=== PATIENT | male | born 1985 | race American Indian/Alaskan Native ===

== ENCOUNTER 2020-02-22 09:48 | Emergency (ER) | payer SELFPAY ==
[2020-02-22] MEDS ORDERED: ONDANSETRON 4 MG/2 ML INJ IV ONE ×2 (10:19→14:11)
[2020-02-22] MEDS ORDERED: MORPHINE 2 MG/1 ML INJ IV ONE (10:19)
[2020-02-22] MEDS ORDERED: PANTOPRAZOLE 40 MG INJ IV ONE (10:19)
[2020-02-22] MEDS ORDERED: SODIUM CHLORIDE 0.9% 1000 ML 1,000 ML IV ONE (10:19)
[2020-02-22] MEDS ORDERED: PIPERACIL/TAZOBACTA 4.5/NS 100 4.5 GM/100 ML VIAL IV ONE (10:20)
--- NOTE | 2020-02-22 10:24 | Emergency Department Report ---
ED Abdominal Pain HPI - General Chief Complaint: Abdominal Pain Stated Complaint: ABD PAIN Time Seen by Provider: 02/22/20 10:11 Source: patient, EMS Mode of arrival: Stretcher Limitations: No Limitations - History of Present Illness Initial Comments: This is a 34-year-old -[place] male who states that he experienced abdominal pain which began at 630 this morning. The pain is located in the right upper quadrant that is an aching which does not radiate. He states that he has not had fever and chills. However he is diaphoretic on my exam. He has had some nausea but no recent vomiting. He states he has had the pain before and was seen in the "[facility]" emergency department. Although he gives a history of problems with his "gallbladder" he denies being told that he had gallstones. He is a very limited historian. MD Complaint: abdominal pain -: Gradual Location: RUQ Radiation: none Migration to: no migration Quality: aching Consistency: constant Improves With: nothing Worsens With: nothing Associated Symptoms: denies other symptoms, nausea. denies: vomiting, diarrhea, fever, chills - Related Data Home Medications Medication Instructions Recorded Confirmed Last Taken Insulin Aspart (Nf) [Novolog 100 3 units SUBLINGUAL AC 05/24/13 05/24/13 05/24/13 16:40 UNITS/ML] Insulin Glargine,Hum.rec.anlog 10 unit SQ QHS 05/24/13 05/24/13 05/23/13 [Lantus Solostar] Previous Rx's Medication Instructions Recorded Last Taken Type Hydrocodone Bit/Acetaminophen 1 each PO Q4-6H #15 tablet 05/24/13 Unknown Rx [Lortab 5-500 Tablet] Ibuprofen [Motrin] 800 mg PO TID PRN #14 tablet 05/24/13 Unknown Rx Prednisone 20 mg PO BID #8 tablet 05/24/13 Unknown Rx methOCARBAMOL [Robaxin] 500 mg PO BID #14 tab 05/24/13 Unknown Rx Ondansetron [Zofran Odt] 4 mg PO Q8HR #7 tab.rapdis 02/22/20 Unknown Rx lisinopriL [Zestril TAB] 5 mg PO QDAY #30 02/22/20 Unknown Rx metFORMIN [Glucophage] 500 mg PO BID #60 tablet 02/22/20 Unknown Rx traMADoL [Ultram] 50 mg PO Q6HR PRN #7 tablet 02/22/20 Unknown Rx Allergies Allergy/AdvReac Type Severity Reaction Status Date / Time No Known Allergies Allergy Unverified 05/24/13 16:38 ED Review of Systems ROS: Stated complaint: ABD PAIN Other details as noted in HPI Constitutional: denies: chills, fever Eyes: denies: eye pain, eye discharge, vision change ENT: denies: ear pain, throat pain Respiratory: denies: cough, shortness of breath, wheezing Cardiovascular: denies: chest pain, palpitations Endocrine: no symptoms reported Gastrointestinal: as per HPI, abdominal pain, nausea. denies: diarrhea Genitourinary: denies: urgency, dysuria Musculoskeletal: denies: back pain, joint swelling, arthralgia Skin: denies: rash, lesions Neurological: denies: headache, weakness, paresthesias Psychiatric: denies: anxiety, depression Hematological/Lymphatic: denies: easy bleeding, easy bruising ED Past Medical Hx - Past Medical History Hx Diabetes: Yes - Surgical History Past Surgical History?: No - Social History Smoking Status: Current Every Day Smoker Substance Use Type: Alcohol - Medications Home Medications: Home Medications Medication Instructions Recorded Confirmed Last Taken Type Hydrocodone Bit/Acetaminophen 1 each PO Q4-6H #15 tablet 05/24/13 Unknown Rx [Lortab 5-500 Tablet] Ibuprofen [Motrin] 800 mg PO TID PRN #14 tablet 05/24/13 Unknown Rx Insulin Aspart (Nf) [Novolog 100 3 units SUBLINGUAL AC 05/24/13 05/24/13 05/24/13 16:40 History UNITS/ML] Insulin Glargine,Hum.rec.anlog 10 unit SQ QHS 05/24/13 05/24/13 05/23/13 History [Lantus Solostar] Prednisone 20 mg PO BID #8 tablet 05/24/13 Unknown Rx methOCARBAMOL [Robaxin] 500 mg PO BID #14 tab 05/24/13 Unknown Rx Ondansetron [Zofran Odt] 4 mg PO Q8HR #7 tab.rapdis 02/22/20 Unknown Rx lisinopriL [Zestril TAB] 5 mg PO QDAY #30 02/22/20 Unknown Rx metFORMIN [Glucophage] 500 mg PO BID #60 tablet 02/22/20 Unknown Rx traMADoL [Ultram] 50 mg PO Q6HR PRN #7 tablet 02/22/20 Unknown Rx ED Physical Exam - General Limitations: No Limitations ED Course Vital Signs 02/22/20 02/22/20 02/22/20 10:01 10:02 10:15 Temperature 97.6 F Pulse Rate 48 L 53 L 47 L Respiratory 13 12 Rate Blood Pressure 163/77 163/77 O2 Sat by Pulse 100 100 100 Oximetry 02/22/20 02/22/20 02/22/20 10:45 11:01 11:31 Temperature Pulse Rate 54 L 52 L 45 L Respiratory 19 23 26 H Rate Blood Pressure 165/88 141/67 168/96 O2 Sat by Pulse 100 98 99 Oximetry 02/22/20 02/22/20 02/22/20 12:01 14:07 14:15 Temperature Pulse Rate 43 L 62 Respiratory 20 19 Rate Blood Pressure 160/85 148/72 146/87 O2 Sat by Pulse 81 L 100 100 Oximetry 02/22/20 14:30 Temperature Pulse Rate 45 L Respiratory 25 H Rate Blood Pressure 153/85 O2 Sat by Pulse 100 Oximetry - Reevaluation(s) Reevaluation #1: I did receive the patient's medical records from [facility]. Apparently on 10/06/2019 he was seen in the emergency department. He had an ultrasound of his gallbladder done at that time which showed slight echogenic material within the gallbladder consistent with polyp or sludge. There was no gallstone. Patient was treated as an outpatient. He was not found to have pancreatitis at that time. 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 02/22/20 11:50 Reevaluation #2: Patient states he has had a pattern to have recurrent right upper quadrant pain for at least 6 months. He states that the only thing he takes for his diabetes is "diet and exercise". He states his bowels are moving normally. He does have some recurrent nausea. He denies chest pain pressure or tightness. He does have some discomfort to palpation of the right upper quadrant on reassessment. He will be given additional Zofran. His EKG showed sinus bradycardia. He tells me that he knows that his heart rate runs slow and this is not anything new for him. There is no ischemic change. I think it is likely he will be referred for outpatient evaluation. He states he is never seen a GI doctor nor had a colonoscopy. Further evaluation is recommended. However at this juncture I am not seeing any definite indication for hospitalization. 02/22/20 14:17 Reevaluation #3: Patient states "I just need something to put on my stomach". He is appropriate for outpatient disposition. 02/22/20 15:12 ED Medical Decision Making - Lab Data Result diagrams: 02/22/20 10:39 02/22/20 10:39 Laboratory Results - last 24 hr 02/22/20 02/22/20 10:39 10:46 WBC 9.2 RBC 4.95 Hgb 16.0 H Hct 47.6 H MCV 96 H MCH 32 MCHC 34 RDW 13.9 Plt Count 170 Lymph % (Auto) 25.0 [place] % (Auto) 6.5 Eos % (Auto) 2.7 Baso % (Auto) 0.3 Lymph # (Auto) 2.3 [place] # (Auto) 0.6 Eos # (Auto) 0.2 Baso # (Auto) 0.0 Seg Neutrophils % 65.5 Seg Neutrophils # 6.0 POC Glucose 155 H Laboratory Results - last 24 hr 02/22/20 02/22/20 02/22/20 10:39 10:39 10:39 WBC 9.2 RBC 4.95 Hgb 16.0 H Hct 47.6 H MCV 96 H MCH 32 MCHC 34 RDW 13.9 Plt Count 170 Lymph % (Auto) 25.0 [place] % (Auto) 6.5 Eos % (Auto) 2.7 Baso % (Auto) 0.3 Lymph # (Auto) 2.3 [place] # (Auto) 0.6 Eos # (Auto) 0.2 Baso # (Auto) 0.0 Seg Neutrophils % 65.5 Seg Neutrophils # 6.0 PT 12.9 INR 0.96 APTT 27.3 VBG pH Sodium 138 Potassium 3.9 Chloride 97.5 L Carbon Dioxide 27 Anion Gap 17 BUN 5 L Creatinine 0.9 Estimated GFR > 60 BUN/Creatinine Ratio 6 Glucose 173 H POC Glucose Ketones Quantitative Lactic Acid Calcium 10.3 H Magnesium 1.80 Total Bilirubin 0.40 Direct Bilirubin < 0.2 Indirect Bilirubin 0.2 AST 24 ALT 20 Alkaline Phosphatase 70 Total Creatine Kinase CK-MB (CK-2) CK-MB (CK-2) Rel Index Troponin T Total Protein 8.0 Albumin 5.0 Albumin/Globulin Ratio 1.7 Lipase Hepatitis A IgM Ab Hep Bs Antigen Hep B Core IgM Ab Hepatitis C Antibody 02/22/20 02/22/20 02/22/20 10:39 10:39 10:39 WBC RBC Hgb Hct MCV MCH MCHC RDW Plt Count Lymph % (Auto) [place] % (Auto) Eos % (Auto) Baso % (Auto) Lymph # (Auto) [place] # (Auto) Eos # (Auto) Baso # (Auto) Seg Neutrophils % Seg Neutrophils # PT INR APTT VBG pH 7.323 Sodium Potassium Chloride Carbon Dioxide Anion Gap BUN Creatinine Estimated GFR BUN/Creatinine Ratio Glucose POC Glucose Ketones Quantitative Lactic Acid 1.80 Calcium Magnesium Total Bilirubin Direct Bilirubin Indirect Bilirubin AST ALT Alkaline Phosphatase Total Creatine Kinase 384 H CK-MB (CK-2) 3.4 CK-MB (CK-2) Rel Index 0.8 Troponin T < 0.010 Total Protein Albumin Albumin/Globulin Ratio Lipase 13 Hepatitis A IgM Ab Hep Bs Antigen Hep B Core IgM Ab Hepatitis C Antibody 02/22/20 02/22/20 02/22/20 10:39 10:39 10:46 WBC RBC Hgb Hct MCV MCH MCHC RDW Plt Count Lymph % (Auto) [place] % (Auto) Eos % (Auto) Baso % (Auto) Lymph # (Auto) [place] # (Auto) Eos # (Auto) Baso # (Auto) Seg Neutrophils % Seg Neutrophils # PT INR APTT VBG pH Sodium Potassium Chloride Carbon Dioxide Anion Gap BUN Creatinine Estimated GFR BUN/Creatinine Ratio Glucose POC Glucose 155 H Ketones Quantitative Negative Lactic Acid Calcium Magnesium Total Bilirubin Direct Bilirubin Indirect Bilirubin AST ALT Alkaline Phosphatase Total Creatine Kinase CK-MB (CK-2) CK-MB (CK-2) Rel Index Troponin T Total Protein Albumin Albumin/Globulin Ratio Lipase Hepatitis A IgM Ab Non-reactive Hep Bs Antigen Non-reactive Hep B Core IgM Ab Non-reactive Hepatitis C Antibody Non-reactive - EKG Data -: EKG Interpreted by [place] EKG shows normal: sinus rhythm Rate: tachycardia - EKG Data Interpretation: nonspecific ST-T wave omer - Radiology Data Radiology results: report reviewed, image reviewed (Chest x-ray no acute process) IMPRESSION: 1. Abundant fecal material noted throughout the colon. Clinical correlation for constipation is recommended. 2. No other acute abdominopelvic findings. Specifically, the appendix and gallbladder are unremarkable. Critical care attestation.: If time is entered above; I have spent that time in minutes in the direct care of this critically ill patient, excluding procedure time. ED Disposition Clinical Impression: Right upper quadrant pain Hyperglycemia due to type 2 diabetes mellitus Qualifiers: Diabetes mellitus parts counterman insulin use: without fdc use Qualified Code(s): E11.65 - Type 2 diabetes mellitus with hyperglycemia Disposition: TO HOME OR SELFCARE Is pt being admited?: No Does the pt Need Aspirin: No Condition: Stable Instructions: Diabetes Mellitus Type 2 in Adults (ED), Acute Abdominal Pain (ED) Additional Instructions: I would recommend medication for your diabetes. I prescribed add something for nausea as well as something to calm down your stomach acid. Further evaluation by a GI specialist/medical clinic is recommended. Return to the emergency department any acute change or problem. Prescriptions: metFORMIN [Glucophage] 500 mg PO BID #60 tablet traMADoL [Ultram] 50 mg PO Q6HR PRN #7 tablet PRN Reason: Pain lisinopriL [Zestril TAB] 5 mg PO QDAY #30 Ondansetron [Zofran Odt] 4 mg PO Q8HR #7 tab.rapdis Referrals: PRIMARY CARE, [Primary Care Provider] - 3-5 Days [facility] [Provider Group] - 3-5 Days [facility] [Provider Group] - 2-3 Days Time of Disposition: 15:17
--- NOTE | 2020-02-22 10:43 | XRay Report ---
CHEST 1 VIEW INDICATION / CLINICAL INFORMATION: possible Sepsis. COMPARISON: None available. FINDINGS: SUPPORT DEVICES: None. HEART / MEDIASTINUM: No significant abnormality. LUNGS / PLEURA: No significant pulmonary or pleural abnormality. No pneumothorax. ADDITIONAL FINDINGS: No significant additional findings. IMPRESSION: 1. No acute findings. Signer Name: Ryan Ohara MD Signed: 02/22/2020 10:39 AM Workstation Name: [id number]
[2020-02-22 11:13] LABS: Basophils % (Auto) 0.3 % (0.0-1.8); Eosinophils # (Auto) 0.2 K/mm3 (0.0-0.4); Eosinophils % (Auto) 2.7 % (0.0-4.3); Hematocrit 47.6 % (35.5-45.6); Lymphocytes # (Auto) 2.3 K/mm3 (1.2-5.4); Mean Corpuscular HGB Conc 34 % (32-34); Mean Corpuscular Volume 96 fl (84-94); Monocytes # (Auto) 0.6 K/mm3 (0.0-0.8); Monocytes % (Auto) 6.5 % (0.0-7.3); Platelet Count 170 K/mm3 (140-440); Red Blood Count 4.95 M/mm3 (3.65-5.03); Red Cell Distribution Width 13.9 % (13.2-15.2)
[2020-02-22 11:23] LABS: INR 0.96 (0.87-1.13)
[2020-02-22 11:24] LABS: Partial Thromboplastin Time 27.3 Sec. (24.2-36.6)
[2020-02-22 11:28] LABS: Hepatitis B Surface Antigen Non-Reactive (Negative); Hepatitis C Virus Antibody Non-Reactive (NonReactive)
[2020-02-22 11:30] LABS: Alanine Aminotransferase 20 units/L (7-56); BUN/Creatinine Ratio 6; Blood Urea Nitrogen 5 mg/dL (9-20); Calcium 10.3 mg/dL (8.4-10.2); Hemolysis Index 9
[2020-02-22 11:32] LABS: Bilirubin,Direct < 0.2 mg/dL (0-0.2)
[2020-02-22 11:35] LABS: Creatine Kinase MB 3.4 ng/mL (0.0-4.0)
--- NOTE | 2020-02-22 13:19 | Cat Scan Report ---
CT ABDOMEN AND PELVIS WITH CONTRAST INDICATION / CLINICAL INFORMATION: MAIN. Right upper quadrant abdominal pain. TECHNIQUE: Axial CT images were obtained through the abdomen and pelvis after IV contrast. All CT scans at this location are performed using CT dose reduction for ALARA by means of automated exposure control. COMPARISON: None available. FINDINGS: LOWER CHEST: No significant abnormality. LIVER: No significant abnormality. GALLBLADDER: No significant abnormality. BILE DUCTS: No significant abnormality. PANCREAS: No significant abnormality. SPLEEN: Splenule is noted. ADRENALS: No significant abnormality. RIGHT KIDNEY / URETER: No significant abnormality. LEFT KIDNEY / URETER: No significant abnormality. STOMACH / SMALL BOWEL: No significant abnormality. COLON: Abundant fecal material is noted throughout the colon. APPENDIX: No significant abnormality. PERITONEUM: No free fluid. No free air. No fluid collection. LYMPH NODES: No significant adenopathy. AORTA / ARTERIES: No significant abnormality. IVC / VEINS: No significant abnormality. URINARY BLADDER: No significant abnormality. REPRODUCTIVE ORGANS: No significant abnormality. ADDITIONAL FINDINGS: None. SKELETAL SYSTEM: No significant abnormality. IMPRESSION: 1. Abundant fecal material noted throughout the colon. Clinical correlation for constipation is recom mended. 2. No other acute abdominopelvic findings. Specifically, the appendix and gallbladder are unremarkabl e. Signer Name: Ryan Ohara MD Signed: 02/22/2020 1:14 PM Workstation Name: [email or web address]
[2020-02-22 13:47] LABS: Bilirubin,Urine NEG (Negative); Blood,Urine NEG (Negative); Color,Urine Yellow (Yellow); Mucus,Urine FEW /HPF; Protein,Urine <15 mg/dL mg/dL (Negative); Urobilinogen,Urine < 2.0 mg/dL (<2.0)
[2020-02-22 14:10] LABS: Amphetamine Screen,Urine Negative; Benzodiazepines Screen,Urine Negative; Cocaine Screen,Urine Negative; Methadone Screen,Urine Negative; Opiate Screen,Urine Negative
[2020-02-22 14:34] LABS: Cannabinoid Screen,Urine Positive
[2020-02-22 15:26] VITALS: BP 155/101
== END 2020-02-22 15:27 | disposition home or self-care (01) ==
LOC: ED 09:48
DX: E11.65 Type 2 diabetes mellitus with hyperglycemia (principal); R10.11 Right upper quadrant pain; F17.200 Nicotine dependence, unspecified, uncomplicated; Z79.899 Other long term (current) drug therapy
CPT/HCPCS: 36415; 71045; 74177; 80048; 80074; 80076; 80307; 81001; 82010; 82140; 82550; 82553; 82805; 82962; 83690; 83735; 84484; 85025; 85610; 85730; 87040; 87086; 93005; 96365; 96366; 96375; 96376; 99285; C9113; J2270; J2405; J2543; J7030; Q9967

== ENCOUNTER 2020-05-18 11:58 | Emergency (ER) | payer SELFPAY ==
[2020-05-18 13:57] LABS: Basophils % (Auto) 0.3 % (0.0-1.8); Eosinophils # (Auto) 0.1 K/mm3 (0.0-0.4); Eosinophils % (Auto) 1.2 % (0.0-4.3); Hematocrit 45.5 % (35.5-45.6); Hemoglobin 15.8 gm/dl (11.8-15.2); Lymphocytes # (Auto) 3.1 K/mm3 (1.2-5.4); Lymphocytes % (Auto) 41.8 % (13.4-35.0); Mean Corpuscular HGB Conc 35 % (32-34); Mean Corpuscular Volume 94 fl (84-94); Monocytes # (Auto) 0.5 K/mm3 (0.0-0.8); Monocytes % (Auto) 7.3 % (0.0-7.3); Platelet Count 184 K/mm3 (140-440); Red Blood Count 4.86 M/mm3 (3.65-5.03)
[2020-05-18 14:21] LABS: Alanine Aminotransferase 15 units/L (7-56); Albumin 4.6 g/dL (3.9-5); BUN/Creatinine Ratio 13; Blood Urea Nitrogen 10 mg/dL (9-20); Calcium 9.8 mg/dL (8.4-10.2); Hemolysis Index 4
--- NOTE | 2020-05-18 17:44 | Emergency Department Report ---
Chief Complaint: Abdominal Pain Stated Complaint: ABDOMINAL PAIN Time Seen by Provider: 05/18/20 17:44 - HPI History of Present Illness: This is a 34-year-old male who presents to the ED complaining of right upper abdominal cramping. Some nausea for the past 2 days. Patient states that he has had chronic abdominal pain the past year and sometimes gets flareup. Patie nt states he has had multiple scans with normal results. Patient states that his abdominal pain started 2 days ago while he was at work which she has not worked. He states that he was told to be evaluated before returning to work. Patient states that pain is resolved this time. Patient denies nausea vomiting at this time. He also denies fever/chills/chest pain or shortness of breath - ROS Review of Systems: As noted in HPI - Exam Physical Exam: GENERAL: Alert and oriented x3, no apparent distress, Normal Gait, atraumatic. MOUTH:Mouth is well hydrated and without lesions. NECK: Supple. Non edematous, No carotid bruits. No lymphadenopathy or thyromegaly. No C-spine tenderness LUNGS: Symetrical with respiration, No wheezing, no rales or crackles, CTAB. HEART: S1, S2 present, regular rate and rhythm without murmur, ABDOMEN: No organomegaly was noted,Positive bowel sounds, soft, and non- distended. . Nontender to palpation on all Quadrants, NO CVA tenderness. BACK: Full range of motion, no spinal tenderness, nontender to palpation. SKIN: Warm and dry, No lesions, No ulceration or induration present. MSE screening note: Focused history and physical exam performed. Due to findings the following was ordered: ED Medical Decision Making - Lab Data Result diagrams: 05/18/20 13:26 05/18/20 13:26 ED Disposition for MSE Clinical Impression: Gastritis Disposition: DC-01 TO HOME OR SELFCARE Is pt being admited?: No Does the pt Need Aspirin: No Condition: Stable Instructions: Gastritis, Adult, [id number] Additional Instructions: Make sure to follow up with the primary care physician as discussed. Take all your medications as you've been prescribed. If you have any worsening symptoms or develop new symptoms please return to ED immediately. Prescriptions: Ondansetron [Zofran ODT TAB] 4 mg PO Q8HR #20 tab.rapdis Referrals: PRIMARY CARE, [Primary Care Provider] - 3-5 Days [facility] [Provider Group] - 3-5 Days Forms: Work/School Release Form(ED) Time of Disposition: 17:49
[2020-05-18 17:49] VITALS: BP 129/86
[2020-05-18 17:50] LABS: Bilirubin,Urine NEG (Negative); Blood,Urine NEG (Negative); Color,Urine Yellow (Yellow); Mucus,Urine FEW /HPF
== END 2020-05-18 17:49 | disposition home or self-care (01) ==
LOC: ED 11:58
DX: K29.70 Gastritis, unspecified, without bleeding (principal)
CPT/HCPCS: 36415; 80053; 81001; 85025

== ENCOUNTER 2020-08-23 09:40 | Emergency (ER) | payer SELFPAY ==
[2020-08-23] MEDS ORDERED: METOCLOPRAMIDE 10 MG TAB PO ONE (10:45)
[2020-08-23] MEDS ORDERED: BUTALB/ACETAMINOPHEN/CAFFEINE TAB PO ONE (10:45)
[2020-08-23] MEDS ORDERED: diphenhydrAMINE 25 MG CAP PO ONE (10:45)
--- NOTE | 2020-08-23 10:53 | Emergency Department Report ---
ED General Adult HPI - General Chief complaint: Headache Stated complaint: HEADACHE X 3 Time Seen by Provider: 08/23/20 10:43 Source: patient Mode of arrival: Ambulatory Limitations: No Limitations - History of Present Illness Initial comments: Patient is a 34-year-old male presents emergency room with complaints of a right temporal headache that began 3 days ago. He has associated chills, rhinorrhea, sore throat, nausea, couple episodes of vomiting. He states he is able to tolerate p.o. intake. He denies any neck stiffness, fever, cough, shortness of breath, chest pain, abdominal pain, diarrhea, vision changes, numbness, weakness, speech disturbance, gait disturbance. He states that several people at his work are out sick. He denies any recent travel. No past medical history. No allergies medications. He states he has been taking Tylenol for his symptoms with some relief. - Related Data Home Medications Medication Instructions Recorded Confirmed Last Taken Insulin Aspart (Nf) [Novolog 100 3 units SUBLINGUAL AC 05/24/13 05/24/13 05/24/13 16:40 UNITS/ML] Insulin Glargine,Hum.rec.anlog 10 unit SQ QHS 05/24/13 05/24/13 05/23/13 [Lantus Solostar] Previous Rx's Medication Instructions Recorded Last Taken Type Hydrocodone Bit/Acetaminophen 1 each PO Q4-6H #15 tablet 05/24/13 Unknown Rx [Lortab 5-500 Tablet] Ibuprofen [Motrin] 800 mg PO TID PRN #14 tablet 05/24/13 Unknown Rx Prednisone 20 mg PO BID #8 tablet 05/24/13 Unknown Rx methOCARBAMOL [Robaxin] 500 mg PO BID #14 tab 05/24/13 Unknown Rx lisinopriL [Zestril TAB] 5 mg PO QDAY #30 02/22/20 Unknown Rx metFORMIN [Glucophage] 500 mg PO BID #60 tablet 02/22/20 Unknown Rx traMADoL [Ultram] 50 mg PO Q6HR PRN #7 tablet 02/22/20 Unknown Rx Ondansetron [Zofran ODT TAB] 4 mg PO Q8HR #20 tab.rapdis 05/18/20 Unknown Rx Butalb/Acetaminophen/Caffeine 1 cap PO Q8HR PRN #10 cap 08/23/20 Unknown Rx [Fioricet 50-300-40 mg CAP] Ondansetron [Zofran Odt] 4 mg PO Q8HR PRN #10 tab.rapdis 08/23/20 Unknown Rx Allergies Allergy/AdvReac Type Severity Reaction Status Date / Time No Known Allergies Allergy Verified 08/23/20 09:59 ED Review of Systems ROS: Stated complaint: HEADACHE X 3 Other details as noted in HPI Comment: All other systems reviewed and negative ED Past Medical Hx - Past Medical History Previous Medical History?: No Hx Diabetes: Yes - Surgical History Past Surgical History?: No - Social History Smoking Status: Never Smoker Substance Use Type: Marijuana - Medications Home Medications: Home Medications Medication Instructions Recorded Confirmed Last Taken Type Hydrocodone Bit/Acetaminophen 1 each PO Q4-6H #15 tablet 05/24/13 Unknown Rx [Lortab 5-500 Tablet] Ibuprofen [Motrin] 800 mg PO TID PRN #14 tablet 05/24/13 Unknown Rx Insulin Aspart (Nf) [Novolog 100 3 units SUBLINGUAL AC 05/24/13 05/24/13 05/24/13 16:40 History UNITS/ML] Insulin Glargine,Hum.rec.anlog 10 unit SQ QHS 05/24/13 05/24/13 05/23/13 History [Lantus Solostar] Prednisone 20 mg PO BID #8 tablet 05/24/13 Unknown Rx methOCARBAMOL [Robaxin] 500 mg PO BID #14 tab 05/24/13 Unknown Rx lisinopriL [Zestril TAB] 5 mg PO QDAY #30 02/22/20 Unknown Rx metFORMIN [Glucophage] 500 mg PO BID #60 tablet 02/22/20 Unknown Rx traMADoL [Ultram] 50 mg PO Q6HR PRN #7 tablet 02/22/20 Unknown Rx Ondansetron [Zofran ODT TAB] 4 mg PO Q8HR #20 tab.rapdis 05/18/20 Unknown Rx Butalb/Acetaminophen/Caffeine 1 cap PO Q8HR PRN #10 cap 08/23/20 Unknown Rx [Fioricet 50-300-40 mg CAP] Ondansetron [Zofran Odt] 4 mg PO Q8HR PRN #10 tab.rapdis 08/23/20 Unknown Rx ED Physical Exam - General Limitations: No Limitations General appearance: alert, in no apparent distress - Head Head exam: Present: atraumatic, normocephalic - Eye Eye exam: Present: normal appearance, PERRL, EOMI. Absent: conjunctival injection, periorbital swelling, periorbital tenderness - ENT ENT exam: Present: normal orophraynx, mucous membranes moist, TM's normal bilaterally, normal external ear exam - Neck Neck exam: Present: full ROM. Absent: meningismus - Respiratory Respiratory exam: Present: normal lung sounds bilaterally. Absent: respiratory distress, wheezes, rales, rhonchi, stridor, chest wall tenderness, accessory muscle use, decreased breath sounds, prolonged expiratory - Cardiovascular Cardiovascular Exam: Present: regular rate, normal rhythm, normal heart sounds. Absent: systolic murmur, diastolic murmur, rubs, gallop - Neurological Exam Neurological exam: Present: alert, oriented X3, CN II-XII intact, normal gait. Absent: motor sensory deficit - Psychiatric Psychiatric exam: Present: normal affect, normal mood - Skin Skin exam: Present: warm, dry, intact ED Course Vital Signs 08/23/20 08/23/20 10:03 12:02 Temperature 98.7 F Pulse Rate 90 76 Respiratory 20 Rate Blood Pressure 124/90 Blood Pressure 129/90 [Right] O2 Sat by Pulse 99 Oximetry ED Medical Decision Making - Medical Decision Making Patient is a 34-year-old male presents emergency room with complaints of a right temporal headache that began 3 days ago. He has associated chills, rhinorrhea, sore throat, nausea, couple episodes of vomiting. He states he is able to tolerate p.o. intake. He denies any neck stiffness, fever, cough, shortness of breath, chest pain, abdominal pain, diarrhea, vision changes, numbness, weakness, speech disturbance, gait disturbance. He states that several people at his work are out sick. He denies any recent travel. No past medical history. No allergies medications. He states he has been taking Tylenol for his symptoms with some relief. vitals are normal. No neuro deficits on exam, no meningeal signs, breath sounds are clear bilaterally, no wheezing, no rales, no rhonchi, normal oropharynx, normal TMs and canals, no signs of bacterial sinusitis. Patient given p.o. medications while in the emergency department and symptoms improved and patient was feeling much better ready to go home. Patient given prescription for Fioricet and Zofran. Patient symptoms likely related to viral URI. Patient is presenting with the symptoms during COVID-19 pandemic, discussed COVID-19 with patient, discussed return precautions, discussed outpatient testing, discussed self quarantine. Advised patient Please take medication as prescribed. Please increase your fluid intake over the next several days. Follow-up with a primary care doctor for reexamination. Return to emergency room immediately for any new or worsening symptoms including but not limited to difficulty breathing, shortness of breath, severe chest pain, unable to tolerate by mouth intake, etc. Please self quarantine for 10 days from the onset of your symptoms. Please do not go out in public. If you are around others at home please wear a mask. If you need to cough or sneeze please do so in a napkin and immediately throw it away and immediately wash your hands. Wash your hands frequently. Wipe everything down. Recommend for you to get COVID-19 testing, may have this done at primary care doctor, health department, [facility], etc Critical care attestation.: If time is entered above; I have spent that time in minutes in the direct care of this critically ill patient, excluding procedure time. ED Disposition Clinical Impression: URI (upper respiratory infection) Qualifiers: URI type: unspecified URI Qualified Code(s): J06.9 - Acute upper respiratory infection, unspecified Disposition: DC-01 TO HOME OR SELFCARE Is pt being admited?: No Does the pt Need Aspirin: No Condition: Stable Instructions: Viral Respiratory Infection Additional Instructions: Please take medication as prescribed. Please increase your fluid intake over the next several days. Follow-up with a primary care doctor for reexamination. Return to emergency room immediately for any new or worsening symptoms including but not limited to difficulty breathing, shortness of breath, severe chest pain, unable to tolerate by mouth intake, etc. Please self quarantine for 10 days from the onset of your symptoms. Please do not go out in public. If you are around others at home please wear a mask. If you need to cough or sneeze please do so in a napkin and immediately throw it away and immediately wash your hands. Wash your hands frequently. Wipe everything down. Recommend for you to get COVID-19 testing, may have this done at primary care doctor, health department, [facility], etc Prescriptions: Butalb/Acetaminophen/Caffeine [Fioricet 50-300-40 mg CAP] 1 cap PO Q8HR PRN #10 cap PRN Reason: headache Ondansetron [Zofran Odt] 4 mg PO Q8HR PRN #10 tab.rapdis PRN Reason: vomiting Referrals: PRIMARY CARE, [Primary Care Provider] - 2-3 Days TOM ROBERTS MD [Staff Physician] - 2-[address] [facility] [Provider Group] - 2-3 Days Forms: Work/School Release Form(ED) Time of Disposition: 11:53 Print Language: CITIZEN OF [place]
[2020-08-23 12:03] VITALS: BP 129/90
== END 2020-08-23 12:06 | disposition home or self-care (01) ==
LOC: ED 09:40
DX: J06.9 Acute upper respiratory infection, unspecified (principal); F12.90 Cannabis use, unspecified, uncomplicated; E11.9 Type 2 diabetes mellitus without complications; Z79.899 Other long term (current) drug therapy
CPT/HCPCS: 99282